=== PATIENT | female | born 1975 | race Caucasian/White ===

== ENCOUNTER 2017-09-13 17:38 | Emergency (ER) | payer BC ==
[2017-09-13 17:52] VITALS: O2SAT 97
--- NOTE | 2017-09-13 18:04 | ERPHSYRPT ---
- History of Present Illness Time Seen by Provider: 09/13/17 17:59 Source: patient Exam Limitations: no limitations Patient Subjective Stated Complaint: pt reports falling 2 days ago onto right wrist-reports pain-states she wrapped it real tight and it still hurts-denies numbness ro tinlging Triage Nursing Assessment: pt pink warm and [id number] obvious defomroty noted -radial pulse present and strong Physician History: The patient is a 42-year-old right-handed female complaining that she fell backwards while pulling up the rosebush in the yard on Wednesday 2 days ago. She fell on her extended right arm causing pain to her right wrist. It hurts to move the wrist. She place an Deandre wrap on it and it still hurts. She has been taking Tylenol and ibuprofen. Her past medical history is noncontributory. Occurred: days ago (2) Reason for Fall: lost balance, fell from standing pos Injuries/Pain Location: upper extremity (right wrist) Loss of Consciousness: no loss of consciousness Quality: aching Severity of Pain-Max: mild Severity of Pain-Current: mild Modifying Factors: Improves With: cold therapy, immobilization, pain medication Associated Symptoms (Fall): denies symptoms Allergies/Adverse Reactions: No Known Drug Allergies Allergy (Unverified 09/13/17 17:52) Home Medications: ALPRAZolam [Xanax ER 0.5MG] 0.5 mg PO TID 09/13/17 [History] Escitalopram Oxalate [Lexapro] 20 mg PO DAILY 09/13/17 [History] Hx Tetanus, Diphtheria Vaccination/Date Given: Yes Hx Influenza Vaccination/Date Given: Yes Hx Pneumococcal Vaccination/Date Given: No Immunizations Up to Date: Yes - Review of Systems Constitutional: No Fever, No Chills Eyes: No Symptoms Ears, Nose, & Throat: No Symptoms Respiratory: No Cough, No Dyspnea Cardiac: No Chest Pain, No Edema, No Syncope Abdominal/Gastrointestinal: No Abdominal Pain, No Nausea, No Vomiting, No Diarrhea Genitourinary Symptoms: No Dysuria Musculoskeletal: Fall, Injury, Joint Pain Skin: No Rash Neurological: No Dizziness, No Focal Weakness, No Sensory Changes Psychological: No Symptoms Endocrine: No Symptoms Hematologic/Lymphatic: No Symptoms Immunological/Allergic: No Symptoms All Other Systems: Reviewed and Negative - Past Medical History Pertinent Past Medical History: Yes Psycho-Social History: Anxiety, Depression - Past Surgical History Past Surgical History: Yes Musculoskeletal: Orthopedic Surgery Other Surgical History: gastric bipass - Social History Smoking Status: Never smoker Exposure to second hand smoke: No Drug Use: none Patient Lives Alone: No - Female History Hx Last Menstrual Period: 09/04/17 Hx Now: No - Nursing Vital Signs Nursing Vital Signs: Initial Vital Signs Temperature 97.9 F 09/13/17 17:46 Pulse Rate 93 H 09/13/17 17:46 Respiratory Rate 18 09/13/17 17:46 Blood Pressure 122/66 09/13/17 17:46 O2 Sat by Pulse Oximetry 97 09/13/17 17:46 Pain Scale Pain Intensity 4 - Jack Coma Score Best Eye Response (Vista): (4) open spontaneously Best Verbal Response (Vista): (5) oriented Best Motor Response (Jack): (6) obeys commands Jack Total: 15 - Physical Exam General Appearance: no apparent distress, alert Head Injury: no evidence of injury Eye Exam: PERRL/EOMI ENT Exam: airway nml Neck Exam: normal inspection, No tenderness Respiratory/Chest Exam: normal breath sounds, No chest tenderness, No respiratory distress Cardiovascular Exam: normal heart sounds, regular rate/rhythm Gastrointestinal Exam: soft, No tenderness, No distention, No guarding, No ecchymosis Rectal Exam: not done Back Exam: normal inspection, No vertebral tenderness Extremity Exam: normal range of motion, pain with movement, tenderness (right wrist ), No limited range of motion, No swelling SpO2: 97 Oxygen Delivery: Room Air - Radiology Exams Right Wrist X-ray Interpretation: Interpreted by me, Negative Ordered Tests: Active Orders 24 hr Category Date Time Status WRIST (MIN 3 VIEWS) Stat Exams 09/13/17 18:22 Taken Medication Summary Discontinued Medications Generic Name Dose Route Start Last Admin Trade Name Waqasq PRN Reason Stop Dose Admin Ketorolac Tromethamine 60 mg 09/13/17 18:07 09/13/17 18:19 Toradol 30 Mg Injection IM 09/13/17 18:08 60 mg STAT ONE Administration Ketorolac Tromethamine Confirm 09/13/17 18:17 Toradol 30 Mg Injection Administered 09/13/17 18:18 Dose 60 mg .ROUTE .STK-MED ONE - Progress Progress: improved Counseled pt/family regarding: rad results - Departure Time of Disposition: 18:52 Departure Disposition: Home Clinical Impression: Right wrist sprain Condition: Stable Critical Care Time: No Referrals: FAHEEM SOTOMAYOR [Primary Care Provider] - Additional Instructions: You have a mild sprain of your right wrist. You were given Toradol 60 mg by IM injection in the ER. Tomorrow you can begin taking naproxen 500 mg 2 times a day as needed. Wear the Deandre wrap for comfort as needed. Follow-up with your primary medical doctor if no improvement by the end of the week. Prescriptions: Naproxen 500 mg PO BID PRN #30 tablet.
[2017-09-13] MEDS ORDERED: TORAdol 30 mg Injection IM ONE (18:07)
[2017-09-13] MEDS ORDERED: TORAdol 30 mg Injection ONE (18:17)
[2017-09-13 18:47] VITALS: BP 119/74; PULSE 76
--- NOTE | 2017-09-14 08:36 | XRAY ---
Indication: Pain following fall. Comparison: None 3 views of the right wrist obtained. No bony, articular, or soft tissue abnormalities.
== END 2017-09-13 19:03 | disposition home or self-care (01) ==
LOC: ED 17:38
DX: S63.501A Unspecified sprain of right wrist, initial encounter (principal); X50.3XXA Overexertion from repetitive movements, initial encounter; Y93.H2 Activity, gardening and landscaping
CPT/HCPCS: 73110; 96372; 99283; J1885

== ENCOUNTER 2023-07-26 05:25 | Day surgery (SDC) | payer BC ==
[2023-07-26 06:11] LABS: HCG URINE TEST NEGATIVE (NEGATIVE)
[2023-07-26] MEDS: Lactated Ringers 1,000 ML IV SCH (06:18)
[2023-07-26] MEDS ORDERED: DIPRIVAN 200 MG/20 ML IV ONE (07:29)
[2023-07-26] MEDS ORDERED: Xylocaine-Mpf 2% 5 Ml Vial ONE (07:29)
[2023-07-26] MEDS ORDERED: Versed 2 MG/2 ML Injection ONE (07:29)
[2023-07-26 08:17] VITALS: RESP 18; O2SAT 96
[2023-07-26 08:23] VITALS: BP 135/73; PULSE 71
[2023-07-26 08:24] VITALS: TEMP 97.8
--- NOTE | 2023-07-26 12:55 | OP ---
SURGERY DATE/TIME: 07/26/2023 0728 PREOPERATIVE DIAGNOSIS: Abnormal Cologuard test. POSTOPERATIVE DIAGNOSIS: Normal colon. PROCEDURE: Colonoscopy. SURGEON: Dr. Pradhan. ANESTHESIA: Medications given by anesthesia department. HISTORY: The patient is a 48-year-old white female presenting with abnormal Cologuard test. The patient was felt the need to have endoscopic evaluation. She was appraised of the risks of the procedure including the risk of perforation, phlebitis, untoward reaction to medication, bleeding and missed lesions. The patient verbalized her understanding and desired to have the procedure performed. DESCRIPTION OF PROCEDURE: The patient was given the medications by the anesthesia department. She had continuous pulse oximetry, ECG monitoring and intermittent blood pressure monitoring during the examination. She was placed in the left lateral decubitus position. A digital rectal examination was performed and revealed normal anal sphincter tone and no masses. The flexible Olympus pediatric colonoscope was used to intubate the rectum. A view of the colon was developed sequentially to the cecum. Upon insertion and withdrawal, including a retroflex view in the rectum, no mucosal lesions were encountered. The scope was removed from the patient who tolerated the procedure well and was sent back to OP recovery in good condition. The prep was noted to be fair to good.
== END 2023-07-26 08:25 | disposition home or self-care (01) ==
LOC: SDC 05:25
PROVIDERS: ATTEND Family Medicine
DX: R19.5 Other fecal abnormalities (principal)
CPT/HCPCS: 81025; J2250; J2704

== ENCOUNTER 2024-05-10 13:33 | Emergency (ER) | payer BC ==
--- NOTE | 2024-05-10 14:07 | ERPHSYRPT ---
- History of Present Illness Time Seen by Provider: 05/10/24 13:47 Historian: patient, family Exam Limitations: no limitations Physician History: 49-year-old female presented in the ER with sudden onset diarrhea since morning with multiple episodes of loose watery stool without hematochezia. Reports occasional abdominal cramping but no pain. Patient reports after so many episodes of diarrhea she feels weak fatigued tired and dehydrated. She tried to get up couple of times and felt as if she was going to pass out and slowly brought herself on the floor. No fever chills or sick contact reported. No recent use of antibiotics Allergies/Adverse Reactions: No Known Drug Allergies Allergy (Verified 07/26/23 06:19) Home Medications: Cholecalciferol (Vitamin D3) [Vitamin D3] 1,250 unit PO WEEKLY 07/23/23 [History] Escitalopram Oxalate [Lexapro] 20 mg PO DAILY 07/23/23 [History] Ferrous Sulfate [Slow Fe] 137 mg PO DAILY 07/23/23 [History] Loratadine [Allergy Relief] 10 mg PO DAILY 07/23/23 [History] Metoprolol Succinate 25 mg Xl* [Toprol-Xl 25MG Tablets] 25 mg PO DAILY 07/23/23 [History] Trazodone HCl 100 mg PO DAILY 07/23/23 [History] Venlafaxine HCl [Venlafaxine HCl ER] 150 mg PO DAILY 07/23/23 [History] hydrOXYzine HCL [Hydroxyzine HCl] 10 mg PO TID 07/23/23 [History] Hx Tetanus, Diphtheria Vaccination/Date Given: Yes Hx Influenza Vaccination/Date Given: Yes Hx Pneumococcal Vaccination/Date Given: No Travel Risk - Emerging Infectious Disease Are you exhibiting symptoms associated with any current EIDs: No - Review of Systems Constitutional: Fatigue, Weakness Eyes: No Symptoms Ears, Nose, & Throat: No Symptoms Respiratory: No Symptoms Cardiac: No Symptoms Abdominal/Gastrointestinal: Diarrhea Genitourinary Symptoms: No Symptoms Musculoskeletal: No Symptoms Skin: No Symptoms Neurological: No Symptoms Endocrine: No Symptoms Hematologic/Lymphatic: No Symptoms - Past Medical History Pertinent Past Medical History: Yes Neurological History: No Pertinent History ENT History: No Pertinent History Cardiac History: No Pertinent History Respiratory History: No Pertinent History Endocrine Medical History: No Pertinent History Musculoskeletal History: Rheumatoid Arthritis GI Medical History: No Pertinent History History: No Pertinent History Psycho-Social History: Depression, Anxiety Female Reproductive Disorders: No Pertinent History - Past Surgical History Past Surgical History: Yes Neuro Surgical History: No Pertinent History Cardiac: No Pertinent History Respiratory: No Pertinent History Gastrointestinal: Other Genitourinary: No Pertinent History Musculoskeletal: Orthopedic Surgery Female Surgical History: Tubal Ligation Other Surgical History: gastric bipass, feet surgery - Social History Smoking Status: Never smoker Exposure to second hand smoke: No Drug Use: none Patient Lives Alone: No - Nursing Vital Signs Nursing Vital Signs: Initial Vital Signs O2 Sat by Pulse Oximetry 96 05/10/24 14:07 Pain Scale Pain Intensity 6 - Physical Exam General Appearance: no apparent distress Eye Exam: PERRL/EOMI Ears, Nose, Throat Exam: normal ENT inspection Neck Exam: normal inspection, supple, full range of motion Respiratory Exam: normal breath sounds, lungs clear Cardiovascular Exam: regular rate/rhythm, normal heart sounds Gastrointestinal/Abdomen Exam: soft, normal bowel sounds, No tenderness, No distention Back Exam: normal inspection, normal range of motion Extremity Exam: normal inspection, normal range of motion Neurologic Exam: alert, oriented x 3, cooperative, parole hearing officer II-XII nml as tested Skin Exam: normal color SpO2 Interpretation: normal SpO2: 96 O2 Delivery: Room Air Ordered Tests: Active Orders 24 hr Category Date Time Status IV Insertion STAT Care 05/10/24 14:04 Active Orthostatic Vital Signs STAT Care 05/10/24 14:05 Active CBC W DIFF Stat Lab 05/10/24 14:36 Completed CMP Stat Lab 05/10/24 14:36 Completed HCG QUALITATIVE, SERUM Stat Lab 05/10/24 14:36 Completed LIPASE Stat Lab 05/10/24 14:36 Completed Lactic Acid Stat Lab 05/10/24 14:04 Completed Lactic Acid Stat Lab 05/10/24 16:48 Stop Req POCT GLUCOSE Stat Lab 05/10/24 14:06 Completed UA W/RFX UR CULTURE Stat Lab 05/10/24 16:00 Completed Medication Summary Discontinued Medications Generic Name Dose Route Start Last Admin Trade Name Freq PRN Reason Stop Dose Admin Acetaminophen 975 mg 05/10/24 16:50 05/10/24 16:56 Acetaminophen 325 Mg Tablet PO 05/10/24 16:51 975 mg STAT STA Administration Acetaminophen Confirm 05/10/24 16:54 Acetaminophen 325 Mg Tablet Administered 05/10/24 16:55 Dose 975 mg .ROUTE .STK-MED ONE Sodium Chloride 1,000 mls @ 999 mls/hr 05/10/24 14:04 05/10/24 14:44 Sodium Chloride 0.9% 1000 Ml IV 05/10/24 15:04 999 mls/hr .Q1H1M STA Administration Sodium Chloride Confirm 05/10/24 14:09 Sodium Chloride 0.9% 1000 Ml Administered 05/10/24 14:10 Dose 1,000 mls @ ud .ROUTE .STK-MED ONE Sodium Chloride Confirm 05/10/24 15:25 Sodium Chloride 0.9% 1000 Ml Administered 05/10/24 15:26 Dose 1,000 mls @ ud .ROUTE .STK-MED ONE Sodium Chloride 1,000 mls @ 999 mls/hr 05/10/24 15:39 05/10/24 16:50 Sodium Chloride 0.9% 1000 Ml IV 05/10/24 16:39 999 mls/hr .Q1H1M STA Administration Lab/Rad Data: Laboratory Result Diagrams 05/10/24 14:36 05/10/24 14:36 Laboratory Results 05/10/24 05/10/24 05/10/24 Range/Units 16:00 16:00 14:36 WBC (3.98-10.04) x10^3/uL RBC (3.93-5.22) x10^6/uL Hgb (11.2-15.7) g/dL Hct (34.1-44.9) % MCV (79.4-94.8) fL MCH (25.6-32.2) pg MCHC (32.2-35.5) g/dL RDW (11.7-14.4) % Plt Count (182-369) x10^3/uL MPV (9.4-12.3) fL Gran % (34.0-71.1) % Immature Gran % (Auto) (0.001-0.429) % Nucleat RBC Rel Count (0.00-0.2) % Eos # (Auto) (0.04-0.36) x10^3/uL Immature Gran # (Auto) (0.001-0.031) x10^3u/L Absolute Lymphs (auto) (1.18-3.74) x10^3/uL Absolute Monos (auto) (0.24-0.86) x10^3/uL Absolute Nucleated RBC (0.00-0.012) x10^3u/L Lymphocytes % (19.3-51.7) % Monocytes % (4.7-12.5) % Eosinophils % (0.7-5.8) % Basophils % (0.1-1.2) % Absolute Granulocytes (1.56-6.13) x10^3/uL Basophils # (0.01-0.08) x10^3/uL Sodium (135-145) mmol/L Potassium (3.5-5.1) mmol/L Chloride (98-107) mmol/L Carbon Dioxide (22-30) mmol/L Anion Gap (5-15) MEQ/L BUN (7-17) mg/dL Creatinine (0.52-1.04) mg/dL Estimated GFR ML/MIN Glucose (74-106) mg/dL POC Glucometer (74 to 106) mg/dL Lactic Acid (0.4-2.0) Calcium (8.4-10.2) mg/dL Total Bilirubin (0.2-1.3) mg/dL AST (14-36) U/L ALT (0-35) U/L Alkaline Phosphatase (38-126) U/L Serum Total Protein (6.3-8.2) g/dL Albumin (3.5-5.0) g/dL Lipase (23-300) U/L Serum HCG, Qual NEGATIVE (NEGATIVE) Urine Color Yellow (Yellow) Urine Appearance Clear (Clear) Urine pH 7.0 (4.6-8.0) Ur Specific [place] 1.020 (1.005-1.030) Urine Protein Negative (Negative) Urine Glucose (UA) Negative (Negative) mg/dL Urine Ketones Negative (Negative) Urine Blood Large A (Negative) Urine Nitrite Negative (Negative) Urine Bilirubin Negative (Negative) Urine Urobilinogen 0.2 (0.2) mg/dL Ur Leukocyte Esterase Negative (Negative) U Hyaline Cast (Auto) NONE SEEN (0-2) /LPF Urine Microscopic RBC 21-50 A (0-5) /HPF Urine Microscopic WBC 0-2 (0-5) /HPF Ur Epithelial Cells Rare (None Seen) /HPF Urine Bacteria None Seen (None Seen) /HPF Urine Culture Reflexed NO (NO) Influenza Type A Ag NEGATIVE (NEGATIVE) Influenza Type B Ag NEGATIVE (NEGATIVE) RSV (PCR) NEGATIVE (NEGATIVE) SARS-CoV-2 (PCR) NEGATIVE (NEGATIVE) Slides for Path Review 05/10/24 05/10/24 05/10/24 Range/Units 14:36 14:36 14:06 WBC 13.8 H (3.98-10.04) x10^3/uL RBC 5.13 (3.93-5.22) x10^6/uL Hgb 9.4 L (11.2-15.7) g/dL Hct 34.4 (34.1-44.9) % MCV 67.1 L (79.4-94.8) fL MCH 18.3 L (25.6-32.2) pg MCHC 27.3 L (32.2-35.5) g/dL RDW 18.7 H (11.7-14.4) % Plt Count 330 (182-369) x10^3/uL MPV 9.8 (9.4-12.3) fL Gran % 91.9 H (34.0-71.1) % Immature Gran % (Auto) 0.4 (0.001-0.429) % Nucleat RBC Rel Count 0.0 (0.00-0.2) % Eos # (Auto) 0 L (0.04-0.36) x10^3/uL Immature Gran # (Auto) 0.06 H (0.001-0.031) x10^3u/L Absolute Lymphs (auto) 0.37 L (1.18-3.74) x10^3/uL Absolute Monos (auto) 0.67 (0.24-0.86) x10^3/uL Absolute Nucleated RBC 0.00 (0.00-0.012) x10^3u/L Lymphocytes % 2.7 L (19.3-51.7) % Monocytes % 4.8 (4.7-12.5) % Eosinophils % 0.0 L (0.7-5.8) % Basophils % 0.2 (0.1-1.2) % Absolute Granulocytes 12.69 H (1.56-6.13) x10^3/uL Basophils # 0.03 (0.01-0.08) x10^3/uL Sodium 134 L (135-145) mmol/L Potassium 4.4 (3.5-5.1) mmol/L Chloride 105 (98-107) mmol/L Carbon Dioxide 21 L (22-30) mmol/L Anion Gap 11.8 (5-15) MEQ/L BUN 14 (7-17) mg/dL Creatinine 0.92 (0.52-1.04) mg/dL Estimated GFR 77.3 ML/MIN Glucose 134 H (74-106) mg/dL POC Glucometer 128 H (74 to 106) mg/dL Lactic Acid (0.4-2.0) Calcium 10.0 (8.4-10.2) mg/dL Total Bilirubin 0.50 (0.2-1.3) mg/dL AST 31 (14-36) U/L ALT 22 (0-35) U/L Alkaline Phosphatase 123 (38-126) U/L Serum Total Protein 7.3 (6.3-8.2) g/dL Albumin 4.0 (3.5-5.0) g/dL Lipase 97 (23-300) U/L Serum HCG, Qual (NEGATIVE) Urine Color (Yellow) Urine Appearance (Clear) Urine pH (4.6-8.0) Ur Specific [place] (1.005-1.030) Urine Protein (Negative) Urine Glucose (UA) (Negative) mg/dL Urine Ketones (Negative) Urine Blood (Negative) Urine Nitrite (Negative) Urine Bilirubin (Negative) Urine Urobilinogen (0.2) mg/dL Ur Leukocyte Esterase (Negative) U Hyaline Cast (Auto) (0-2) /LPF Urine Microscopic RBC (0-5) /HPF Urine Microscopic WBC (0-5) /HPF Ur Epithelial Cells (None Seen) /HPF Urine Bacteria (None Seen) /HPF Urine Culture Reflexed (NO) Influenza Type A Ag (NEGATIVE) Influenza Type B Ag (NEGATIVE) RSV (PCR) (NEGATIVE) SARS-CoV-2 (PCR) (NEGATIVE) Slides for Path Review YES 05/10/24 Range/Units 14:04 WBC (3.98-10.04) x10^3/uL RBC (3.93-5.22) x10^6/uL Hgb (11.2-15.7) g/dL Hct (34.1-44.9) % MCV (79.4-94.8) fL MCH (25.6-32.2) pg MCHC (32.2-35.5) g/dL RDW (11.7-14.4) % Plt Count (182-369) x10^3/uL MPV (9.4-12.3) fL Gran % (34.0-71.1) % Immature Gran % (Auto) (0.001-0.429) % Nucleat RBC Rel Count (0.00-0.2) % Eos # (Auto) (0.04-0.36) x10^3/uL Immature Gran # (Auto) (0.001-0.031) x10^3u/L Absolute Lymphs (auto) (1.18-3.74) x10^3/uL Absolute Monos (auto) (0.24-0.86) x10^3/uL Absolute Nucleated RBC (0.00-0.012) x10^3u/L Lymphocytes % (19.3-51.7) % Monocytes % (4.7-12.5) % Eosinophils % (0.7-5.8) % Basophils % (0.1-1.2) % Absolute Granulocytes (1.56-6.13) x10^3/uL Basophils # (0.01-0.08) x10^3/uL Sodium (135-145) mmol/L Potassium (3.5-5.1) mmol/L Chloride (98-107) mmol/L Carbon Dioxide (22-30) mmol/L Anion Gap (5-15) MEQ/L BUN (7-17) mg/dL Creatinine (0.52-1.04) mg/dL Estimated GFR ML/MIN Glucose (74-106) mg/dL POC Glucometer (74 to 106) mg/dL Lactic Acid 2.2 H (0.4-2.0) Calcium (8.4-10.2) mg/dL Total Bilirubin (0.2-1.3) mg/dL AST (14-36) U/L ALT (0-35) U/L Alkaline Phosphatase (38-126) U/L Serum Total Protein (6.3-8.2) g/dL Albumin (3.5-5.0) g/dL Lipase (23-300) U/L Serum HCG, Qual (NEGATIVE) Urine Color (Yellow) Urine Appearance (Clear) Urine pH (4.6-8.0) Ur Specific [place] (1.005-1.030) Urine Protein (Negative) Urine Glucose (UA) (Negative) mg/dL Urine Ketones (Negative) Urine Blood (Negative) Urine Nitrite (Negative) Urine Bilirubin (Negative) Urine Urobilinogen (0.2) mg/dL Ur Leukocyte Esterase (Negative) U Hyaline Cast (Auto) (0-2) /LPF Urine Microscopic RBC (0-5) /HPF Urine Microscopic WBC (0-5) /HPF Ur Epithelial Cells (None Seen) /HPF Urine Bacteria (None Seen) /HPF Urine Culture Reflexed (NO) Influenza Type A Ag (NEGATIVE) Influenza Type B Ag (NEGATIVE) RSV (PCR) (NEGATIVE) SARS-CoV-2 (PCR) (NEGATIVE) Slides for Path Review - Progress Progress: improved Progress Note: 05/10/24 17:29 49-year-old is evaluated in the ER for sudden onset diarrhea, feeling weak fatigued tired dehydrated and lightheadedness with standing. Patient has nonfocal neuroexam. Orthostatics are positive with blood pressure dropping from 1 20-96 and heart rate increased more than 20 bpm. She is given 2 boluses of IV fluids and feeling much improved on reevaluation. Workup showed white count of 13, hemoglobin of 9.4 which patient does have history of chronic anemia. Chemistries fairly unremarkable except for mildly elevated lactate of 2.2. Abdominal exam is soft nontender on repeated evaluations, do not think needs imaging. On repeated eval patient ambulated in the ER without any limitations and her di zziness/lightheadedness is improved. I believe patient has viral etiology symptoms/gastroenteritis, recommended supportive care, will give her Zofran, counseled on increase hydration and outpatient follow-up. Discussed signs symptoms of worsening needing return to ER which she seems understanding. Stable for discharge. 05/10/24 17:30 Counseled pt/family regarding: lab results, diagnosis, need for follow-up, rad results Medical Desision Making - Independent Historian Additional History obtained from: Spouse - Diagnostic Testing Diagnostic test were ordered, analyzed, and reviewed by me: Yes - Risk of complications The pt has a mod risk of morbidity or mortality based on: Need for prescription drug management - Departure Departure Disposition: Home Clinical Impression: Gastroenteritis, Dehydration, Orthostatic dizziness Condition: Stable Critical Care Time: No Referrals: FAHEEM SOTOMAYOR NP [Primary Care Provider] - Follow up with PCP 1 day Instructions: Diarrhea and Traveler's Diarrhea, Adult (DC) Additional Instructions: Drink plenty of fluids to keep yourself well-hydrated. Take Tylenol/Zofran as needed. Follow-up with primary care for reevaluation. Return to ER for intractable diarrhea or if develop vomiting/abdominal pain/fever chills etc. Prescriptions: Ondansetron ODT 4 MG [Zofran Odt 4 mg] 1 ea PO QIDPRN PRN #10 tablet PRN Reason: n/v
[2024-05-10] MEDS ORDERED: Sodium Chloride 0.9% 1000 ML 1,000 ML ONE ×2 (14:09→15:25)
[2024-05-10 14:11] VITALS: RESP 18; TEMP 99.2
[2024-05-10 14:43] LABS: Absolute Neutrophil Ct (ANC) 12.69 x10^3/uL (1.56-6.13); BASOPHIL % 0.2 % (0.1-1.2); Basophil (Absolute #) 0.03 x10^3/uL (0.01-0.08); Eosinophil (Absolute #) 0 x10^3/uL (0.04-0.36); Hematocrit 34.4 % (34.1-44.9); Hemoglobin 9.4 g/dL (11.2-15.7); IMMATURE GRAN # 0.06 x10^3u/L (0.001-0.031); IMMATURE GRAN % 0.4 % (0.001-0.429); Lymphocyte (Absolute #) 0.37 x10^3/uL (1.18-3.74); Lymphocytes % 2.7 % (19.3-51.7); Mean Cell Volume 67.1 fL (79.4-94.8); Mean Corpuscular Hemoglobin 18.3 pg (25.6-32.2); Mean Corpuscular Hgb Concent. 27.3 g/dL (32.2-35.5); Mean Platelet Volume 9.8 fL (9.4-12.3); Monocyte (Absolute #) 0.67 x10^3/uL (0.24-0.86); Monocytes % 4.8 % (4.7-12.5); Neutrophil % 91.9 % (34.0-71.1); Platelet Count 330 x10^3/uL (182-369); Red Blood Count 5.13 x10^6/uL (3.93-5.22); Red Cell Distribution Width 18.7 % (11.7-14.4); White Blood Count 13.8 x10^3/uL (3.98-10.04)
[2024-05-10] MEDS: Sodium Chloride 0.9% 1000 ML 1,000 ML IV STA ×2 (14:44→16:50)
[2024-05-10 15:00] LABS: HCG SERUM TEST NEGATIVE (NEGATIVE)
[2024-05-10 15:01] LABS: ANION GAP 11.8 MEQ/L (5-15); BILIRUBIN,TOTAL 0.5 mg/dL (0.2-1.3); Creatinine 1 0.92 mg/dL (0.52-1.04); EST GLOMERULAR FILTRATION RATE 77.3 ML/MIN; Potassium 4.4 mmol/L (3.5-5.1); Total Protein 7.3 g/dL (6.3-8.2)
[2024-05-10 15:54] LABS: Slide Review 1 YES
[2024-05-10 16:13] LABS: Appearance Clear (Clear); Bacteria None Seen /HPF (None Seen); Bilirubin Negative (Negative); Blood Large (Negative); Epithelial Cells Rare /HPF (None Seen); Glucose, Urine Negative (Negative); Hyaline Casts NONE SEEN /LPF (0-2); Ketones Negative (Negative); Leukocyte Esterase Negative (Negative); Nitrite Negative (Negative); Protein,Urine Dip Negative (Negative); RBC 21-50 /HPF (0-5); Urobilinogen 0.2 mg/dL (0.2); WBC 0-2 /HPF (0-5)
[2024-05-10 16:40] LABS: INFLUENZA A NEGATIVE (NEGATIVE); INFLUENZA B NEGATIVE (NEGATIVE); RESPIRATORY SYNCTIAL VIRUS NEGATIVE (NEGATIVE); SARS-CoV-2 Xpert Express NEGATIVE (NEGATIVE)
[2024-05-10 16:48] VITALS: BP 113/78; PULSE 88
[2024-05-10] MEDS ORDERED: TYLENOL 325 MG ONE (16:54)
[2024-05-10] MEDS: TYLENOL 325 MG PO STA (16:56)
[2024-05-10 17:33] VITALS: O2SAT 96
== END 2024-05-10 17:58 | disposition home or self-care (01) ==
LOC: ED 13:33
DX: A08.4 Viral intestinal infection, unspecified (principal); E86.0 Dehydration; I95.1 Orthostatic hypotension; R19.7 Diarrhea, unspecified; R53.1 Weakness; Z79.899 Other long term (current) drug therapy
CPT/HCPCS: 0241U; 36415; 80053; 81001; 82947; 83605; 83690; 84703; 85025; 99284; 99283; A9270-GY